=== PATIENT | male | born 1945 | race Caucasian/White ===

== ENCOUNTER → 2017-04-20 | Outpatient (CLI) | payer MEDICARE ==
--- NOTE | 2017-04-20 11:34 | US ---
EXAMINATION TYPE: US pelvic limited DATE OF EXAM: 04/20/2017 COMPARISON: NONE CLINICAL HISTORY: R32 Urinary incontinence. Incontinence. BLADDER PREVOID: 5.4 X 4.7 X 4.9 CM. 65.80 ML. BLADDER POST VOID: 1.7 X 4.1 X 2.3CM 8.6ML. BLADDER IS ANECHOIC AND BILATERAL JETS VISUALIZED. IMPRESSION: 1. Normal pelvic ultrasound with attention to the urinary bladder.
== END | disposition home or self-care (01) ==
LOC: RADUSWWP 10:14
PROVIDERS: ATTEND Family Medicine
DX: R32 Unspecified urinary incontinence (principal)
CPT/HCPCS: 76857

== ENCOUNTER → 2019-12-05 | Outpatient (CLI) | payer MEDICARE ==
--- NOTE | 2019-12-05 18:21 | CT ---
EXAMINATION TYPE: CT angio chest DATE OF EXAM: 12/05/2019 COMPARISON: None HISTORY: SOB CT DLP: 309 mGycm Automated exposure control for dose reduction was used. CONTRAST: Performed with IV Contrast, patient injected with 100 mL of Isovue 370. There are 3-D post processed images. There is bullous emphysema. There is no mediastinal adenopathy. Thoracic aorta is atheromatous. Heart size is normal. There is no pericardial effusion. There is subpleural reticular density in the poste rior lung cohen. There are no hilar masses. There is normal contrast opacification of the pulmonary arteries. There are no filling defects. Bony thorax is intact. There is no compression fracture. IMPRESSION: Emphysema and pulmonary interstitial fibrosis. No evidence of pulmonary embolism.
== END | disposition home or self-care (01) ==
LOC: RADCTMAIN 16:15
PROVIDERS: ATTEND Internal Medicine
DX: J43.9 Emphysema, unspecified (principal); J84.10 Pulmonary fibrosis, unspecified
CPT/HCPCS: 82565; 84520; 71275; 36415; Q9967

== ENCOUNTER → 2021-10-26 | Outpatient (CLI) | payer MEDICARE ==
--- NOTE | 2021-10-26 15:31 | NM ---
EXAMINATION TYPE: NM bone scan whole body DATE OF EXAM: 10/26/2021 COMPARISON: NONE HISTORY: R 74.8 Delayed whole-body scanning was performed following the injection of 21.9 mCi Tc 99m MDP. Images acq uired 4 hours post injection. FINDINGS: Soft tissue uptake is normal. There is uptake within the hands, feet, shoulders which is likely degen erative. No areas of abnormal increased or decreased uptake to suggest metastatic disease. IMPRESSION: Osteoarthritis.
== END | disposition home or self-care (01) ==
LOC: RADNMMAIN 10:24
PROVIDERS: ATTEND Internal Medicine Geriatric Medicine
DX: R74.8 Abnormal levels of other serum enzymes (principal); M19.90 Unspecified osteoarthritis, unspecified site
CPT/HCPCS: 78306; A9503